=== PATIENT | male | born 2005 | race Two or more races ===

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

== ENCOUNTER 2023-08-14 08:34 | Inpatient (IN) | payer MEDICAID ==
[~2023-08-14] VITALS: Ht 170.2 cm; Wt 79.0 kg
[~2023-08-14 08:34] MED LIST changes: -ACET-1158 PO; +ACET500T58 PO; +ALBUAER3 IN; +IBUP-1454 PO; -IBUP600T27 PO; +LEVO750T40 PO; -LEVO750T64 PO
[2023-08-14] MEDS ORDERED: SODIUM CHLORIDE 0.9% 1,000 ML IV ONE (09:45)
[2023-08-14] MEDS ORDERED: ONDANSETRON HCL 4 MG/2 ML VIAL IV ONE (09:45)
[2023-08-14] MEDS ORDERED: LORazepam 2MG/ML-1ML VIAL IV ONE (09:45)
[2023-08-14 10:07] LABS: Basophils # (auto) 0 10 ^3/uL (0-0.2); Basophils % (auto) 0.1 % (0.0-2.0); Eosinophils # (auto) 0 10 ^3/uL (0-0.8); Hematocrit 44.8 % (41.0-53.0); Lymphocytes # (auto) 1.8 10 ^3/uL (0.4-5.4); Lymphocytes % (auto) 7.8 % (10.0-50.0); Mean Corpuscular Hemoglobin 28.6 pg (28.0-32.0); Mean Corpuscular Hgb Conc. 33.4 g/dL (32.0-36.0); Mean Corpuscular Volume 85.5 fL (80.0-100.0); Monocytes # (auto) 2.4 10 ^3/uL (0-1.3); Monocytes % (auto) 10.4 % (0.0-12.0); Neutrophils % (auto) 81.7 % (37.0-80.0); Red Blood Cells 5.24 10^6/uL (4.5-5.90); Red Cell Distribution Width 13.1 % (11.8-14.3); White Blood Cell 23.2 10^3/uL (4.4-10.8)
[2023-08-14 10:11] LABS: Alanine Aminotransferase 16 U/L (7-40); Albumin 5.6 g/dL (3.2-4.8); Alkaline Phosphatase 111 U/L (46-116); Anion Gap 17 (5-15); Aspartate Aminotransferase 19 U/L (13-40); BUN/Creatinine Ratio 10.8 (10.0-20.0); Blood Urea Nitrogen 38 mg/dL (9-23); Calcium 9.7 mg/dL (8.5-10.1); Carbon Dioxide 31 mmol/L (20-30); Chloride 90 mmol/L (98-107); Glucose 161 mg/dL (74-106); Potassium 3.5 mmol/L (3.5-5.1); Sodium 138 mmol/L (136-145)
[2023-08-14 10:12] LABS: Bilirubin, Total 1.8 mg/dL (0.2-1.0); Total Protein 8.5 g/dL (5.7-8.2)
[2023-08-14 10:33] LABS: Lipase 31 U/L (12-53)
[2023-08-14] MEDS ORDERED: DOCUSATE SOD 100 MG CAP PO PRN (13:00)
[2023-08-14] MEDS ORDERED: ONDANSETRON HCL 4 MG/2 ML VIAL IV PRN (13:00)
[2023-08-14] MEDS ORDERED: ENOXAPARIN SOD 100 MG/1 ML SYRINGE SC ONE (13:00)
[2023-08-14] MEDS: SODIUM CHLORIDE 0.9% 1,000 ML IV SCH (13:00)
[2023-08-14] MEDS ORDERED: LORazepam 2MG/ML-1ML VIAL IV PRN (13:00)
[2023-08-14] MEDS ORDERED: SODIUM CHLORIDE 0.9% 2,000 ML IV ONE (13:00)
[2023-08-14] MEDS ORDERED: DEXTROSE (50%) 50ML SYRG IV PRN (13:00)
[2023-08-14 14:35] LABS: Urine Epithelial Cast None Seen /hpf (<5)
[2023-08-14 14:53] LABS: Sodium Urine 14 mmol/L (40-220)
[2023-08-14 14:54] LABS: Urine Bacteria NONE SEEN /hpf (None Seen); Urine Blood 2+ /uL (Negative); Urine Clarity HAZY (Clear); Urine Color Yellow (Yellow); Urine Hyaline Cast MOD /lpf (0 - 2); Urine Mucus FEW (None Seen); Urine Protein, UAD 2+ (Negative); Urine Specific Gravity 1.031 (1.001-1.035); Urine WBC 5 /hpf (0 - 3); Urine pH 5.5 (5.0-8.0)
[2023-08-14 15:01] LABS: Amphetamine Screen, Urine Neg (NEGATIVE); Barbiturate Scree,Urine Neg (NEGATIVE); Benzodiazephine Screen, Urine Neg (NEGATIVE); Cannabinoid Screen, Urine Pos (NEGATIVE); Cocaine Screen, Urine Neg (NEGATIVE); Opiate Scree,Urine Neg (NEGATIVE); Phencyclidine Screen, Urine Neg (NEGATIVE)
[2023-08-14 15:10] LABS: Creatinine, Urine 527.83 mg/dL (30.0-125.0)
[2023-08-14 16:41] VITALS: PULSE 106; RESP 20; O2SAT 97
[2023-08-14] MEDS: ACCU-CHEK COMFORT CURVE STRIP VI SCH ×2 (17:00→22:00)
[2023-08-14] MEDS: InsuLIN REG 1unit/0.01ml Soln (100units/ml) SC SCH (17:00)
[2023-08-14 18:59] LABS: Alanine Aminotransferase 13 U/L (7-40); Albumin 5.6 g/dL (3.2-4.8); Alkaline Phosphatase 107 U/L (46-116); Anion Gap 17 (5-15); Aspartate Aminotransferase 43 U/L (13-40); BUN/Creatinine Ratio 11.6 (10.0-20.0); Blood Urea Nitrogen 35 mg/dL (9-23); Carbon Dioxide 32 mmol/L (20-30); Chloride 88 mmol/L (98-107); Glucose 133 mg/dL (74-106); Sodium 137 mmol/L (136-145)
[2023-08-14 19:00] LABS: Bilirubin, Total 2.2 mg/dL (0.2-1.0); Total Protein 8.5 g/dL (5.7-8.2)
[2023-08-14 19:10] LABS: Creatine Kinase IFCC 1533 U/L (46-171)
[2023-08-14 19:45] VITALS: PULSE 100; RESP 16; O2SAT 98
[2023-08-14] MEDS ORDERED: InsuLIN REG 1unit/0.01ml Soln (100units/ml) SC SCH (22:00)
[2023-08-14] MEDS: ENOXAPARIN SOD 100 MG/1 ML SYRINGE SC SCH (22:43)
[2023-08-15] MEDS: SODIUM CHLORIDE 0.9% 1,000 ML IV SCH ×5 (01:30→22:03)
[2023-08-15 06:29] LABS: Potassium 3.9 mmol/L (3.5-5.1); Sodium 138 mmol/L (136-145)
[2023-08-15 06:32] LABS: Anion Gap 3 (5-15); Basophils # (auto) 0 10 ^3/uL (0-0.2); Basophils % (auto) 0.2 % (0.0-2.0); Calcium 9.3 mg/dL (8.5-10.1); Carbon Dioxide 34 mmol/L (20-30); Eosinophils # (auto) 0 10 ^3/uL (0-0.8); Eosinophils % (auto) 0.3 % (0.0-7.0); Hematocrit 36.6 % (41.0-53.0); Hemoglobin 12.5 g/dL (13.5-17.5); Lymphocytes # (auto) 3.4 10 ^3/uL (0.4-5.4); Lymphocytes % (auto) 26.4 % (10.0-50.0); Mean Corpuscular Hemoglobin 29.3 pg (28.0-32.0); Mean Corpuscular Hgb Conc. 34.1 g/dL (32.0-36.0); Monocytes % (auto) 7.8 % (0.0-12.0); Neutrophils # (auto) 8.4 10 ^3/uL (1.6-8.6); Neutrophils % (auto) 65.3 % (37.0-80.0); Red Blood Cells 4.26 10^6/uL (4.5-5.90); Red Cell Distribution Width 13.6 % (11.8-14.3); White Blood Cell 12.8 10^3/uL (4.4-10.8)
[2023-08-15 06:37] LABS: BUN/Creatinine Ratio 15.9 (10.0-20.0); Glucose 105 mg/dL (74-106)
[2023-08-15 06:38] LABS: Alkaline Phosphatase 85 U/L (46-116)
[2023-08-15 06:39] LABS: Alanine Aminotransferase 19 U/L (7-40); Albumin 4.4 g/dL (3.2-4.8); Aspartate Aminotransferase 94 U/L (13-40)
[2023-08-15 06:40] LABS: Bilirubin, Total 2.5 mg/dL (0.2-1.0); Total Protein 6.6 g/dL (5.7-8.2)
[2023-08-15 06:41] LABS: Blood Urea Nitrogen 24 mg/dL (9-23); Chloride 101 mmol/L (98-107)
[2023-08-15] MEDS: InsuLIN REG 1unit/0.01ml Soln (100units/ml) SC SCH ×2 (07:00→11:13)
[2023-08-15] MEDS: ACCU-CHEK COMFORT CURVE STRIP VI SCH ×4 (07:07→22:03)
[2023-08-15 07:40] VITALS: PULSE 76; RESP 11; O2SAT 99
[2023-08-15] MEDS: ENOXAPARIN SOD 100 MG/1 ML SYRINGE SC SCH ×2 (09:39→22:03)
[2023-08-15] MEDS: PANTOPRAZOLE 40 MG/10 ML VIAL INJ IV SCH (09:39)
[2023-08-15 13:35] VITALS: RESP 17
[2023-08-15 15:39] VITALS: BP 108/63; PULSE 86; TEMP 98.3; O2SAT 96
[2023-08-15 17:00] VITALS: BP 92/56; PULSE 64; RESP 19; TEMP 98; O2SAT 96
[2023-08-15 20:00] VITALS: RESP 18; O2SAT 98
[2023-08-15 22:00] VITALS: BP 113/67; PULSE 86; RESP 18; TEMP 97.8; O2SAT 98
[2023-08-16] VITALS (7 sets, daily range): BP systolic 102–127; BP diastolic 58–75; PULSE 69–92; RESP 16–18; TEMP 36.8; O2SAT 96–99
[2023-08-16 05:59] LABS: Basophils # (auto) 0 10 ^3/uL (0-0.2); Basophils % (auto) 0.5 % (0.0-2.0); Eosinophils # (auto) 0.1 10 ^3/uL (0-0.8); Eosinophils % (auto) 1.6 % (0.0-7.0); Hematocrit 35.7 % (41.0-53.0); Hemoglobin 12.1 g/dL (13.5-17.5); Lymphocytes # (auto) 4.1 10 ^3/uL (0.4-5.4); Lymphocytes % (auto) 48.2 % (10.0-50.0); Mean Corpuscular Hemoglobin 29.4 pg (28.0-32.0); Mean Corpuscular Hgb Conc. 33.9 g/dL (32.0-36.0); Mean Corpuscular Volume 86.8 fL (80.0-100.0); Monocytes # (auto) 0.6 10 ^3/uL (0-1.3); Monocytes % (auto) 6.6 % (0.0-12.0); Neutrophils # (auto) 3.6 10 ^3/uL (1.6-8.6); Neutrophils % (auto) 43.1 % (37.0-80.0); Red Blood Cells 4.11 10^6/uL (4.5-5.90); Red Cell Distribution Width 13.1 % (11.8-14.3); White Blood Cell 8.5 10^3/uL (4.4-10.8)
[2023-08-16 06:09] LABS: Alanine Aminotransferase 37 U/L (7-40); Alkaline Phosphatase 75 U/L (46-116); Anion Gap 4 (5-15); Aspartate Aminotransferase 128 U/L (13-40); BUN/Creatinine Ratio 7.3 (10.0-20.0); Blood Urea Nitrogen 9 mg/dL (9-23); Calcium 8.2 mg/dL (8.7-10.4); Carbon Dioxide 30 mmol/L (20-30); Chloride 105 mmol/L (98-107); Glucose 89 mg/dL (74-106); Potassium 3.7 mmol/L (3.5-5.1); Sodium 139 mmol/L (136-145)
[2023-08-16 06:10] LABS: Albumin 3.8 g/dL (3.2-4.8); Bilirubin, Total 1.5 mg/dL (0.2-1.0); Total Protein 5.8 g/dL (5.7-8.2)
[2023-08-16] MEDS: ACCU-CHEK COMFORT CURVE STRIP VI SCH ×2 (06:16→11:03)
[2023-08-16 06:21] LABS: Creatine Kinase IFCC 4411 U/L (46-171)
[2023-08-16] MEDS: PANTOPRAZOLE 40 MG/10 ML VIAL INJ IV SCH (08:04)
[2023-08-16] MEDS: ENOXAPARIN SOD 100 MG/1 ML SYRINGE SC SCH (08:04)
[2023-08-16] MEDS: SODIUM CHLORIDE 0.9% 1,000 ML IV SCH (11:03)
[2023-08-19 09:16] LABS: Hepatitis B Surface Antigen Negative (Negative)
[2023-08-19 09:38] LABS: Hepatitis C Antibody Negative (Negative)
== END 2023-08-16 16:38 | disposition home or self-care (01) | DRG 351 ==
LOC: ER 08:34 → TELE 12:54 → TELE-E-ADS 08-15 13:08 → TELE-EAST 08-15 23:45 → EAST 08-16 00:24
PROVIDERS: ADMIT Nurse Practitioner Family; ATTEND Nurse Practitioner Acute Care
DX: M62.82 Rhabdomyolysis (principal); N17.0 Acute kidney failure with tubular necrosis; E86.0 Dehydration; E86.1 Hypovolemia; R65.10 Systemic inflammatory response syndrome (SIRS) of non-infectious origin without acute organ dysfunction; N20.0 Calculus of kidney; F12.10 Cannabis abuse, uncomplicated; F15.10 Other stimulant abuse, uncomplicated; J45.909 Unspecified asthma, uncomplicated; K21.9 Gastro-esophageal reflux disease without esophagitis
CPT/HCPCS: 36415; 74022; 74176; 78582; 80053; 80307; 81001; 82010; 82550; 82570; 82962; 83036; 83605; 83690; 84300; 84484; 85025; 85379; 86803; 87040; 87340; 96361; 96374; 96375; C9113; G0378; J2405